=== PATIENT | female | born 1975 | race Caucasian/White ===

== ENCOUNTER 2022-01-12 05:35 | Day surgery (SDC) | payer OTHER ==
[~2022-01-12] VITALS: Ht 162.6 cm; Wt 63.5 kg
[~2022-01-12 05:35] MED LIST: D3 + K2 DOTS 11 EACH PO; HEMATOGEN FORT1 EACH PO; IRON PO; VITAMIN B PO; VITAMIN D PO
== END 2022-01-12 10:20 | disposition home or self-care (01) ==
LOC: CIR.AMB 05:35
PROVIDERS: ATTEND Specialist
DX: N84.0 Polyp of corpus uteri (principal); N72 Inflammatory disease of cervix uteri; Z20.822 Contact with and (suspected) exposure to COVID-19; Z88.0 Allergy status to penicillin; Z86.16 Personal history of COVID-19